=== PATIENT | male | born 2000 | race Caucasian/White ===

== ENCOUNTER 2024-06-15 17:32 | Emergency (ER) | payer OTHER ==
[2024-06-15 17:53] VITALS: BP 107/70; PULSE 80; RESP 18; TEMP 98.4; BMI 21.6
[2024-06-15] MEDS ORDERED: TETRACAINE 0.5% OPHTH SOLN 2 ML BOTTLE ONE (18:41)
[2024-06-15] MEDS ORDERED: FLUORESCEIN NA 1 EA STRIP ONE (18:41)
[2024-06-15] MEDS: PROPARACAINE 0.5% OPHTH SOLN 15 ML BTL OS ONE (18:48)
[2024-06-15] MEDS: FLUORESCEIN NA 1 EA STRIP OS ONE (18:48)
== END 2024-06-15 18:54 | disposition home or self-care (01) ==
LOC: JER 17:32
DX: H11.31 Conjunctival hemorrhage, right eye (principal); W50.4XXA Accidental scratch by another person, initial encounter; Y93.72 Activity, wrestling
CPT/HCPCS: 99283-25